=== PATIENT | female | born 1980 | race African-American/Black ===

== ENCOUNTER 2016-11-14 22:19 | Emergency (ER) | payer OTHER ==
[2016-11-14] MEDS ORDERED: HYDROcodone/Acetaminophen 10/325 mg Tablet ONE (22:50)
== END 2016-11-15 00:26 | disposition home or self-care (01) ==
LOC: NAV ERS 22:19
DX: K02.9 Dental caries, unspecified (principal); E78.5 Hyperlipidemia, unspecified; I10 Essential (primary) hypertension; Z79.891 Long term (current) use of opiate analgesic; Z79.84 Long term (current) use of oral hypoglycemic drugs; Z79.82 Long term (current) use of aspirin; Z79.899 Other long term (current) drug therapy
CPT/HCPCS: 99282

== ENCOUNTER 2017-09-14 23:02 | Emergency (ER) | payer OTHER ==
[2017-09-14] MEDS ORDERED: cefTRIAXone\\ROCEPHIN 1 GM VIAL ONE (23:30)
[2017-09-14] MEDS ORDERED: Lidocaine 1% 20 ML MDV ONE (23:30)
[2017-09-14] MEDS ORDERED: methylPREDNISolone Acetate 40 mg/ml Vial ONE (23:30)
== END 2017-09-15 00:05 | disposition home or self-care (01) ==
LOC: NAV ERS 23:02
DX: J20.9 Acute bronchitis, unspecified (principal); J01.90 Acute sinusitis, unspecified; E11.9 Type 2 diabetes mellitus without complications; E78.5 Hyperlipidemia, unspecified; I10 Essential (primary) hypertension; E66.9 Obesity, unspecified; Z79.84 Long term (current) use of oral hypoglycemic drugs; Z79.899 Other long term (current) drug therapy
CPT/HCPCS: 96372; J0696; J1030; J2001

== ENCOUNTER 2017-12-07 21:22 | Emergency (ER) | payer OTHER ==
[~2017-12-07 21:22] MED LIST: Iopamidol 370 76% 100 ML VIAL ONE
[2017-12-07] MEDS ORDERED: Ondansetron HCl/PF 4 MG/2 ML Vial ONE (21:57)
[2017-12-07 22:05] LABS: Bilirubin Negative (Negative); Blood, Urine Negative (Negative); Clarity Clear (Clear); Glucose, Urine (Dipstick) 250 mg/dL (Negative); Leukocyte Negative (Negative); Nitrite Negative (Negative); Protein, Urine (Dipstick) Negative (Neg-Trace); Urobilinogen 0.2 mg/dL (0.2-1.0); pH, Urine 5.5 (5.0-9.0)
[2017-12-07 22:10] LABS: BHCG - Serum Negative (NEGATIVE); Pregs Control Bar Appear? YES (CONTROL BAR)
[2017-12-07 22:20] LABS: ALT (SGPT) 18 U/L (8-55); AST (SGOT) 13 U/L (5-34); Albumin 3.8 g/dL (3.5-5.0); Alkaline Phosphatase 75 U/L (40-150); Anion Gap 15 mmol/L (10-20); BUN (Urea Nitrogen) 12 mg/dL (7.0-18.7); Bilirubin, Total 0.5 mg/dL (0.2-1.2); Calc. Creatinine Clearance 0 mL/min (70-130); Carbon Dioxide 24 mmol/L (22-29); Chloride 102 mmol/L (98-107); Estimated GFR-MDRD Greater than 90; Globulin 3.8 g/dL (2.4-3.5); Glucose 276 mg/dL (70-105); Lipase 44 U/L (8-78); Potassium 3.8 mmol/L (3.5-5.1); Protein, Total 7.6 g/dL (6.0-8.3); Sodium 137 mmol/L (136-145)
[2017-12-07 22:22] LABS: #Basophils 0.1 thou/uL (0.0-0.2); #Eosinphils 0.1 thou/uL (0.0-0.7); #Monocytes 0.3 thou/uL (0.11-0.59); %Basophils 0.7 % (0.0-1.0); %Eosinophils 0.7 % (0.0-10.0); %Lymphocytes 13.8 % (21.0-51.0); %Monocytes 3.9 % (0.0-10.0); Hemoglobin 13.6 g/dL (12.0-16.0); Mean Corpuscular HGB CONC 31.1 g/dL (32.0-36.0); Mean Corpuscular Hemoglobin 24.8 pg (27.0-31.0); Mean Corpuscular Volume 79.7 fL (78.0-98.0); Mean Platelet Volume 10.3 fL (7.4-10.4); Platelet Count 204 thou/uL (130-400); Red Blood Cell (RBC) Count 5.47 mill/uL (4.20-5.40); White Blood Cell (WBC) Count 7.4 thou/uL (4.8-10.8)
[2017-12-07 22:34] LABS: Hypochromia SLIGHT = 6-15 cells (100X) (0-5/hpf); MDiff Complete? YES; Microcytosis SLIGHT = 6-15 cells (100X) (0-5/hpf); PLT Morphology Comment Appears Adequate
--- NOTE | 2017-12-07 23:33 | CT ---
CT ABDOMEN AND PELVIS WITH CONTRAST: HISTORY: Abdominal pain, nausea, and vomiting. COMPARISON: None. FINDINGS: The lung bases are clear. No pericardial effusion. The exam is limited due to habitus. No dilated loops of large or small bowel. Mild diverticular dis ease of the sigmoid colon without current active inflammation. No free intraperitoneal gas or fluid. The spleen, pancreas, and liver are unremarkable. No perichol ecystic fluid. The appendix is not adequately visualized, although there are no secondary signs of a cute appendicitis. The kidneys are unremarkable. No retroperitoneal adenopathy. The aortoiliac contour is nonaneurysma l. No hydronephrosis. Mild narrowing of the pubic symphysis. No acute osseous abnormality. IMPRESSION: 1. No acute inflammatory process in the abdomen or pelvis. 2. Small fat-containing umbilical hernia. POS: [facility]GEN[facility]
[2017-12-07] MEDS ORDERED: HYDROcodone/Acetaminophen 5/325 mg Tablet ONE (23:36)
== END 2017-12-07 23:40 | disposition home or self-care (01) ==
LOC: NAV ERS 21:22
DX: R10.12 Left upper quadrant pain (principal); R10.13 Epigastric pain; R11.2 Nausea with vomiting, unspecified; E11.9 Type 2 diabetes mellitus without complications; E78.5 Hyperlipidemia, unspecified; E66.9 Obesity, unspecified; I10 Essential (primary) hypertension; Z79.84 Long term (current) use of oral hypoglycemic drugs; Z79.899 Other long term (current) drug therapy
CPT/HCPCS: 74177; 80053; 81003; 83690; 84703; 85025; 93005; 96374; 96375; J2270; J2405

== ENCOUNTER 2021-05-06 20:28 | Emergency (ER) | payer OTHER ==
[2021-05-06 20:55] LABS: #Basophils 0.1 thou/uL (0.0-0.2); #Eosinphils 0.1 thou/uL (0.0-0.7); #Lymphocytes 2.6 thou/uL (1.20-3.40); #Monocytes 0.6 thou/uL (0.11-0.59); %Basophils 1.2 % (0.0-1.0); %Eosinophils 1.5 % (0.0-10.0); %Lymphocytes 34.9 % (21.0-51.0); %Monocytes 8.5 % (0.0-10.0); %Neutrophils 53.9 % (42.0-75.0); Hemoglobin 12.7 g/dL (12.0-16.0); Mean Corpuscular HGB CONC 31.1 g/dL (32.0-36.0); Mean Corpuscular Hemoglobin 25.9 pg (27.0-31.0); Mean Corpuscular Volume 83.2 fL (78.0-98.0); Mean Platelet Volume 9.7 fL (7.4-10.4); Platelet Count 239 thou/uL (130-400); RBC Distribution Width 13.4 % (11.5-14.5); Red Blood Cell (RBC) Count 4.88 mill/uL (4.20-5.40); White Blood Cell (WBC) Count 7.4 thou/uL (4.8-10.8)
[2021-05-06 21:21] LABS: ALT (SGPT) 19 U/L (8-55); AST (SGOT) 15 U/L (5-34); Albumin 3.8 g/dL (3.5-5.0); Alkaline Phosphatase 82 U/L (40-110); Anion Gap 16 mmol/L (10-20); BUN (Urea Nitrogen) 22 mg/dL (7.0-18.7); Bilirubin, Total 0.3 mg/dL (0.2-1.2); Calc. Creatinine Clearance 0 mL/min (70-130); Calcium 9.6 mg/dL (7.8-10.44); Carbon Dioxide 23 mmol/L (22-29); Chloride 99 mmol/L (98-107); Globulin 4.4 g/dL (2.4-3.5); Glucose 317 mg/dL (70-105); Magnesium 1.8 mg/dL (1.6-2.6); Potassium 3.6 mmol/L (3.5-5.1); Protein, Total 8.2 g/dL (6.0-8.3); Sodium 134 mmol/L (136-145)
[2021-05-06] MEDS ORDERED: Sodium Chloride 0.9% 1,000 ML ONE (22:06)
[2021-05-06] MEDS ORDERED: Aspirin Chewable 81 MG TAB ONE (22:06)
[2021-05-06] MEDS ORDERED: Ketorolac Tromethamine 30 MG/ML VIAL ONE (22:06)
[2021-05-06 23:43] LABS: Troponin I Less than 0.010 ng/mL (< 0.028)
== END 2021-05-07 00:10 | disposition home or self-care (01) ==
LOC: NAV ERS 20:28
DX: R07.9 Chest pain, unspecified (principal); I10 Essential (primary) hypertension; E11.9 Type 2 diabetes mellitus without complications; E78.5 Hyperlipidemia, unspecified; E66.9 Obesity, unspecified; E78.00 Pure hypercholesterolemia, unspecified; Z79.82 Long term (current) use of aspirin; Z79.899 Other long term (current) drug therapy
CPT/HCPCS: 71045; 71275; 80053; 83735; 84484; 85025; 85379; 93005; 94760; 96374; J1885; J7050; Q9967

== ENCOUNTER 2022-03-22 15:00 | Emergency (ER) | payer BC, OTHER ==
[2022-03-22 15:46] LABS: #Basophils 0.2 thou/uL (0.0-0.2); #Eosinphils 0.1 thou/uL (0.0-0.7); #Lymphocytes 2.5 thou/uL (1.20-3.40); #Monocytes 0.5 thou/uL (0.11-0.59); %Basophils 2.1 % (0.0-1.0); %Eosinophils 1.2 % (0.0-10.0); %Lymphocytes 29.8 % (21.0-51.0); %Monocytes 6.2 % (0.0-10.0); %Neutrophils 60.7 % (42.0-75.0); Hemoglobin 11.5 g/dL (12.0-16.0); Mean Corpuscular HGB CONC 31.2 g/dL (32.0-36.0); Mean Corpuscular Hemoglobin 25.9 pg (27.0-31.0); Mean Corpuscular Volume 83.2 fL (78.0-98.0); Mean Platelet Volume 9.8 fL (7.4-10.4); Platelet Count 232 thou/uL (130-400); RBC Distribution Width 13.5 % (11.5-14.5); Red Blood Cell (RBC) Count 4.44 mill/uL (4.20-5.40); White Blood Cell (WBC) Count 8.2 thou/uL (4.8-10.8)
[2022-03-22 16:08] LABS: ALT (SGPT) 14 U/L (8-55); AST (SGOT) 14 U/L (5-34); Albumin 3.8 g/dL (3.5-5.0); Alkaline Phosphatase 69 U/L (40-110); Anion Gap 21 mmol/L (10-20); BUN (Urea Nitrogen) 17 mg/dL (7.0-18.7); Bilirubin, Total 0.3 mg/dL (0.2-1.2); Calc. Creatinine Clearance 0 mL/min (70-130); Calcium 9.6 mg/dL (7.8-10.44); Carbon Dioxide 21 mmol/L (22-29); Chloride 104 mmol/L (98-107); Estimated GFR 62; Globulin 4.3 g/dL (2.4-3.5); Glucose 103 mg/dL (70-105); Potassium 3.7 mmol/L (3.5-5.1); Protein, Total 8.1 g/dL (6.0-8.3); Sodium 142 mmol/L (136-145)
[2022-03-22] MEDS ORDERED: Diazepam 5 MG TAB ONE (16:37)
[2022-03-22] MEDS ORDERED: Sodium Chloride 0.9% 2,000 ML ONE (16:46)
[2022-03-22 17:52] LABS: Bilirubin Negative (Negative); Blood, Urine Negative (Negative); Clarity Clear (Clear); Glucose, Urine (Dipstick) >=1000 mg/dL (Negative); Ketone, Urine 15 mg/dL (Negative); Leukocyte Negative (Negative); Nitrite Negative (Negative); Protein, Urine (Dipstick) Negative (Neg-Trace); Specific Gravity, Urine 1.015 (1.005-1.030); Urobilinogen 0.2 mg/dL (Less than 2)
[2022-03-22] MEDS ORDERED: Meclizine HCl 25 MG TAB ONE (18:01)
== END 2022-03-22 18:23 | disposition home or self-care (01) ==
LOC: NAV ER/OP 15:00
DX: H81.10 Benign paroxysmal vertigo, unspecified ear (principal); E86.0 Dehydration; R81 Glycosuria; E11.9 Type 2 diabetes mellitus without complications; E78.00 Pure hypercholesterolemia, unspecified; I10 Essential (primary) hypertension
CPT/HCPCS: 80053; 81003; 85025; 96360; 96361; J7050

== ENCOUNTER 2022-06-09 20:29 | Emergency (ER) | payer BC ==
[2022-06-09] MEDS ORDERED: Ketorolac Tromethamine 60 MG/2 ML VIAL ONE (20:48)
== END 2022-06-09 21:50 | disposition home or self-care (01) ==
LOC: NAV ERS 20:29
DX: S93.401A Sprain of unspecified ligament of right ankle, initial encounter (principal); E11.9 Type 2 diabetes mellitus without complications; E78.00 Pure hypercholesterolemia, unspecified; I10 Essential (primary) hypertension; X58.XXXA Exposure to other specified factors, initial encounter
CPT/HCPCS: 96372; J1885

== ENCOUNTER 2022-06-12 02:43 | Emergency (ER) | payer BC ==
[2022-06-12 03:24] LABS: #Basophils 0.1 thou/uL (0.0-0.2); #Eosinphils 0.1 thou/uL (0.0-0.7); #Lymphocytes 3.4 thou/uL (1.20-3.40); #Monocytes 0.8 thou/uL (0.11-0.59); #Neutrophils 6.4 thou/uL (1.40-6.50); %Basophils 1.1 % (0.0-1.0); %Eosinophils 1.2 % (0.0-10.0); %Lymphocytes 31.3 % (21.0-51.0); %Neutrophils 59.5 % (42.0-75.0); Hemoglobin 13.5 g/dL (12.0-16.0); Mean Corpuscular HGB CONC 31.3 g/dL (32.0-36.0); Mean Corpuscular Hemoglobin 26.5 pg (27.0-31.0); Mean Corpuscular Volume 84.6 fl (78.0-98.0); Mean Platelet Volume 9.9 fL (7.4-10.4); Platelet Count 174 10x3/uL (130-400); RBC Distribution Width 14.1 % (11.5-14.5); Red Blood Cell (RBC) Count 5.11 mill/uL (4.20-5.40); White Blood Cell (WBC) Count 10.8 10x3/uL (4.8-10.8)
[2022-06-12 03:25] LABS: Glucose 352 mg/dL (70-105)
[2022-06-12 03:30] LABS: AST (SGOT) 20 U/L (5-34); Albumin 3.6 g/dL (3.5-5.0); Alkaline Phosphatase 71 U/L (40-110); Anion Gap 19 mmol/L (10-20); BUN (Urea Nitrogen) 19 mg/dL (7.0-18.7); Bilirubin, Total 0.3 mg/dL (0.2-1.2); Calc. Creatinine Clearance 0 mL/min (70-130); Calcium 9.6 mg/dL (7.8-10.44); Carbon Dioxide 17 mmol/L (22-29); Chloride 104 mmol/L (98-107); Estimated GFR 52; Globulin 4.7 g/dL (2.4-3.5); Potassium 3.5 mmol/L (3.5-5.1); Protein, Total 8.3 g/dL (6.0-8.3); Sodium 136 mmol/L (136-145)
[2022-06-12 03:34] LABS: ALT (SGPT) 18 U/L (8-55)
[2022-06-12 03:37] LABS: Base Excess-Venous -6.2 mmol/L (-2.0 to 3.0); Bicarbonate (HCO3v) 16.3 mmol/L (22.0-28.0); CO2 Tension (PvCO2) 25.3 mmHg (42.0-51.0); Calcium, Ionized 0.99 mmol/L (1.15-1.33); Chloride 112 mmol/L (98-107); Hemoglobin - Calc 15.9 g/dL (12.0-16.0); Potassium 3.3 mmol/L (3.5-5.1); Sodium 140 mmol/L (138-145); T. Carbon Dioxide 17.1 mmol/L (22.0-28.0); vO2 Saturation-calc 93.9 % (60.0-85.0)
[2022-06-12] MEDS ORDERED: Enoxaparin Sodium 60 MG/0.6 ML SYRINGE ONE (04:06)
[2022-06-12] MEDS ORDERED: Enoxaparin Sodium 100 MG/ML SYRINGE ONE (04:06)
[2022-06-12 04:27] LABS: SARS-CoV-2 NAA Rapid Test Not Detected (NotDetected)
[2022-06-12 05:40] LABS: Bilirubin Negative (Negative); Blood, Urine Negative (Negative); Clarity Clear (Clear); Glucose, Urine (Dipstick) 500 mg/dL (Negative); Ketone, Urine 15 mg/dL (Negative); Leukocyte Negative (Negative); Nitrite Negative (Negative); Protein, Urine (Dipstick) Negative (Neg-Trace); Urobilinogen 0.2 mg/dL (Less than 2); pH, Urine 5.5 (5.0-9.0)
== END 2022-06-12 05:36 | disposition short-term general hospital (02) ==
LOC: NAV ERS 02:43
DX: R00.0 Tachycardia, unspecified (principal); Z20.822 Contact with and (suspected) exposure to COVID-19; E11.9 Type 2 diabetes mellitus without complications; E78.00 Pure hypercholesterolemia, unspecified; I10 Essential (primary) hypertension; E66.9 Obesity, unspecified
CPT/HCPCS: 71045; 80053; 81003; 82330; 82553; 82803; 83605; 83880; 84484; 85025; 85379; 87804; 93005; 96372; J1650; U0002